=== PATIENT | male | born 1985 | race Caucasian/White ===

== ENCOUNTER 2016-10-23 15:31 | Emergency (ER) | payer OTHER ==
[~2016-10-23] VITALS: Ht 175.3 cm; Wt 71.7 kg
[2016-10-23 15:52] VITALS: TEMP 37.1; Ht 175.3 cm; Wt 71.7 kg
--- NOTE | 2016-10-23 17:58 | DIAGNOSTIC IMAGING REPORT ---
LUMBAR SPINE 5 VIEWS HISTORY: Low back pain. LIFTING INJURY 2 DAYS COMPARISON: None. FINDINGS: There is no fracture. Bilateral L5 spondylolysis. There is associated 3 mm of anterolisthesis of L5 on S1. Mild disc space narrowing at L4-L5 and L5-S1. Minimal disc space narrowing at L3-L4. IMPRESSION: 1. No acute fracture within the lumbar spine. 2. Mild degenerative disc disease within the lower lumbar spine described above. 3. Bilateral L5 spondylolysis with 3 mm of anterolisthesis. Electronically signed by: Francis Enriquez M.D. 10/23/2016 5:56 PM Dictated Date/Time: 10/23/2016 5:54 PM
[2016-10-23] MEDS ORDERED: CYCL10TA6 PO (18:05)
--- NOTE | 2016-10-23 18:05 | EMERGENCY ROOM VISIT NOTE ---
ED Visit Note First contact with patient: 16:23 CHIEF COMPLAINT: Back injury at work 2 days ago HISTORY OF PRESENT ILLNESS: Patient is a 37-year-old white male who presents to the emergency department for evaluation of low-back pain after an injury while lifting a heavy piece of equipment at work 2 days ago. He was placing the equipment on the cart, when he felt a pulling sensation in his low back. He continued to work. 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 When he went into work today to do his paperwork he was directed here for evaluation. He complains of pain along the left low back that radiates into the left buttocks and into the left leg to the left knee. He has used heat and Mattie aspirin. He rates his discomfort a 2/10 presently. He denies any prior history of back injuries or problems. He denies any numbness, tingling or weakness into the extremities. No bowel or bladder incontinence. REVIEW OF SYSTEMS: Review of systems as per HPI. All other systems reviewed were negative. At least 6 systems reviewed. PMH: Electronic medical records are reviewed and summarized as above/below. See Problem List. SOCIAL HISTORY: Patient lives at home. Employed. Smoker. PHYSICAL EXAM: Vital Signs: Reviewed Nurse's notes. MENTAL STATUS: Uncomfortable appearing 31-year-old white male who is awake and alert and in mild distress due to his back pain. He has difficulty with position changes. NECK: Supple, non-tender. HEART: Regular rate and rhythm. LUNGS: Clear to auscultation. ABDOMEN: Soft, non-tender, no masses or organs felt. Bowel sounds normoactive. BACK: Tenderness in the left paraspinous muscles in the lumbar area. No tenderness over the spinous processes of the lumbar vertebrae. He has discomfort with flexion, rotation and lateral bending. LEGS: Normal strength including dorsi-flexion and plantar flexion of the great toes and ankles, flexion and extension of the knees and flexion of the hips. Negative bilateral straight leg raising, normal and symmetrical knee and ankle reflexes. Sensation to light touch is grossly intact. EMERGENCY DEPARTMENT COURSE: X-rays of the lumbar spine were obtained. Mild degenerative changes were noted. No evidence for acute fracture or bony abnormality. The patient was offered nonnarcotic medication in the ED for pain , but declined. He has reproducible midline low back pain after a lifting injury which lends itself toward a muscular or ligamentous injury. He does have some radicular symptoms however, and possibility of disc herniation or nerve root impingement was certainly entertained. He does not have any evidence for acute cord compression or cauda equina syndrome. He was placed on a muscle relaxer and ibuprofen and encouraged heat and rest and follow-up with his Worker's Compensation physician if his symptoms are not improving. LUMBAR SPINE 5 VIEWS HISTORY: Low back pain. LIFTING INJURY 2 DAYS COMPARISON: None. FINDINGS: There is no fracture. Bilateral L5 spondylolysis. There is associated 3 mm of anterolisthesis of L5 on S1. Mild disc space narrowing at L4-L5 and L5-S1. Minimal disc space narrowing at L3-L4. IMPRESSION: 1. No acute fracture within the lumbar spine. 2. Mild degenerative disc disease within the lower lumbar spine described above. 3. Bilateral L5 spondylolysis with 3 mm of anterolisthesis. Current/Historical Medications Scheduled PRN Cyclobenzaprine Hcl (Flexeril), 10 MG PO TID PRN for Muscle Spasms Allergies Coded Allergies: No Known Allergies (Unverified , 10/23/16) Vital Signs Date Time Temp Pulse Resp B/P Pulse Ox O2 Delivery O2 Flow Rate FiO2 10/23/16 18:15 88 131/77 98 Room Air 10/23/16 15:52 37.1 101 18 135/84 96 Room Air Departure Information Impression Primary Impression: Low back pain Additional Impression: Work related injury Prescriptions Cyclobenzaprine Hcl (FLEXERIL) 10 Mg Tab 10 MG PO TID Y for Muscle Spasms, #30 TAB Prov: Miranda Graves PA 10/23/16 Referrals No Doctor, Assigned (PCP) Patient Instructions [facility] Additional Instructions Cyclobenzaprine (Flexeril) 10 mg: Take 1 pills 3 times daily as needed for muscle spasms.. Avoid alcohol, operating machinery or dangerous equipment, working on ladders or roofs, DRIVING, or situations where being under the influence may be dangerous. Ibuprofen(Motrin, Advil) may be used for fever or pain. Use 600mg every six hours as needed. Take with food. Avoid using more than 2400mg in a 24 hour period. Do not use 2400mg per day for more than three consecutive days without physician direction. Prolonged inappropriate use can lead to stomach upset or ulcers. This medication can be taken if you need to drive, work, or perform activities which may be dangerous when taking narcotic pain medication. (AND/OR) Acetaminophen(Tylenol) may be used for fever or pain. Use 1000mg every six hours as needed. Avoid using more than 3000mg in a 24 hour period. This medication can be taken if you need to drive, work, or perform activities which may be dangerous when taking narcotic pain medication. Rest and avoid heavy lifting until your symptoms resolve and then gradually return to full activity. A good rule of thumb is if it hurts your back to perform a certain activity, then it should be avoided until you are healthy again. A heating pad, warm compresses, or a hot shower may help with tight muscles and can be done several times a day as needed. Continue current medications. Return to the ER immediately for any numbness, tingling, severe pain, loss of control of your bowels or bladder, inability to walk, or as needed. Follow up with your workers compensation physician within 3-5 days for a recheck of your current condition. Problem Qualifiers
[2016-10-23 18:15] VITALS: BP 131/77; PULSE 88; O2SAT 98
== END 2016-10-23 18:21 | disposition home or self-care (01) ==
LOC: C.EDB 15:33 → C.EDD 18:21
DX: M54.5 Low back pain (principal); X50.0XXA Overexertion from strenuous movement or load, initial encounter; Y99.0 Civilian activity done for income or pay; F17.200 Nicotine dependence, unspecified, uncomplicated